=== PATIENT | female | born 1990 | race African-American/Black ===

== ENCOUNTER 2025-06-27 19:41 | Emergency (ER) | payer MEDICAID ==
[~2025-06-27] VITALS: Ht 160 cm; Wt 90.0 kg
[2025-06-27 19:49] VITALS: BP 137/50; PULSE 67; RESP 18; TEMP 36.8; O2SAT 100
[2025-06-27 20:35] LABS: BASOPHILS % 0.7 % (0.0-2.0); EOSINOPHILS % 1.7 % (0.0-5.0); HEMATOCRIT. 32.1 % (36.0-48.0); HEMOGLOBIN. 10.1 g/dL (12.0-16.0); LYMPHOCYTES % 20.1 % (20.0-50.0); MEAN PLATELET VOLUME 8.2 fl (7.4-10.4); MONOCYTES % 5.2 % (2.0-8.0); NEUTROPHILS % 72.3 % (40.0-76.0); PLATELET 303 x1000/uL (130-400); RED BLOOD CELL COUNT 4.38 mill/uL (4.2-5.4); RED CELL DISTRIBUTION WIDTH 17.4 % (11.6-14.6)
[2025-06-27 20:46] LABS: HCG SCREEN NEGATIVE
[2025-06-27 21:13] LABS: CREATININE 0.8 mg/dL (0.6-1.0); UREA NITROGEN BLOOD 7 mg/dL (9-23)
[2025-06-27 21:14] LABS: ASPARTATE AMINOTRANSFERASE 19 IU/L (<34); TROPONIN I HIGH SENSITIVITY < 4 ng/L (3.0-34)
[2025-06-27 21:15] LABS: BILIRUBIN DIRECT 0.1 mg/dL (<=3.0); BILIRUBIN TOTAL 0.5 mg/dL (0.1-1.0); PROTEIN TOTAL 6.9 g/dL (6.0-8.3)
[2025-06-27 21:17] LABS: ETHANOL BLOOD < 10 mg/dL (<10)
== END 2025-06-27 21:30 | disposition left against medical advice (07) ==
LOC: ER 19:41
DX: R07.89 Other chest pain (principal); I10 Essential (primary) hypertension; E66.9 Obesity, unspecified; Z79.899 Other long term (current) drug therapy
CPT/HCPCS: 36415; 71045; 80048; 80076; 80320; 83880; 84484; 84703; 85025; 93005; 99285; G0480